=== PATIENT | male | born 1975 | race Caucasian/White ===

== ENCOUNTER 2021-12-25 00:59 | Emergency (ER) | payer OTHER ==
[~2021-12-25] VITALS: Ht 170.2 cm; Wt 106.1 kg
[2021-12-25 03:07] LABS: BASOPHILS ABSOLUTE AUTO 0.07 K/mm3 (0.00-0.23); BASOPHILS PERCENT AUTO 1 % (0-2); EOSINOPHILS ABSOLUTE AUTO 0.18 K/mm3 (0.00-0.68); EOSINOPHILS PERCENT AUTO 2 % (0-6); Hematocrit 47.8 % (37.0-53.0); Hemoglobin 17.2 g/dL (13.5-17.5); IMMATURE GRAN ABSOLUTE AUTO 0.03 K/mm3 (0.00-0.10); IMMATURE GRAN PERCENT AUTO 0 % (0-1); LYMPHOCYTES ABSOLUTE AUTO 2.18 K/mm3 (0.84-5.20); LYMPHOCYTES PERCENT AUTO 20 % (21-46); MONOCYTES ABSOLUTE AUTO 0.89 K/mm3 (0.16-1.47); MONOCYTES PERCENT AUTO 8 % (4-13); Mean Corpuscular HGB 31.7 pg (26.0-34.0); Mean Corpuscular Volume 88 fL (80-100); Mean Platelet Volume 12.6 fL (9.1-12.4); NEUTROPHILS ABSOLUTE AUTO 7.64 K/mm3 (1.96-9.15); NEUTROPHILS PERCENT AUTO 70 % (41-73); Platelet Count 260 K/mm3 (150-400); RDW Coefficient Variation 12.6 % (11.7-14.2); RDW Standard Deviation 40.9 fL (35.1-46.3); Red Blood Cell Count 5.43 M/mm3 (4.30-5.90); White Blood Cell Count 10.99 K/mm3 (4.00-11.30)
[2021-12-25 03:28] LABS: Alanine Aminotransfer (ALT/SGP 38 U/L (12-78); Albumin, Blood 4.1 g/dL (3.4-5.0); Albumin/Globulin Ratio 1.1 (0.8-1.8); Alk Phos 81 U/L (50-136); Anion Gap 10 mmol/L (6-16); Aspartate Aminotrans (AST/SGOT 18 U/L (12-37); Bilirubin, Total 0.4 mg/dL (0.1-1.0); Blood Urea Nitrogen 12 mg/dL (8-24); CO2, Blood 24 mmol/L (21-32); Calcium, Blood 9.7 mg/dL (8.5-10.1); Chloride, Blood 107 mmol/L (98-108); Creatinine, Blood 1.09 mg/dL (0.60-1.20); Globulin, Blood 3.6 g/dL (2.2-4.0); Glomerular Filtration Rate >60 (60-); Glucose, Blood 160 mg/dL (70-99); Potassium, Blood 3.7 mmol/L (3.5-5.5); Sodium, Blood 141 mmol/L (136-145); Total Protein, Blood 7.7 g/dL (6.4-8.2)
[2021-12-25 09:46] LABS: Source, Urine Clean Catch
[2021-12-25 09:56] LABS: Bilirubin, Urine Neg (Neg); Blood, Urine Neg (Neg); Glucose Qualitative, Urine Neg (Neg); Ketones, Urine Neg (Neg); Leukocyte Esterase, Urine Neg (Neg); Nitrite, Urine Neg (Neg); Protein, Urine Neg (Neg); Urobilinogen, Urine 1+ (Normal)
[2021-12-25 10:04] LABS: Appearance, Urine Clear (Clear); Color, Urine Yellow (P-Yellow)
[2021-12-25] MEDS ORDERED: HYDR1TAB94 PO (10:34)
[2021-12-25] MEDS ORDERED: ONDA4ODT MM (10:34)
== END 2021-12-25 10:54 | disposition home or self-care (01) ==
LOC: ER 00:59
PROVIDERS: Student in an Organized Health Care Education/Training Program
DX: K80.70 Calculus of gallbladder and bile duct without cholecystitis without obstruction (principal); F17.210 Nicotine dependence, cigarettes, uncomplicated; Z88.6 Allergy status to analgesic agent
CPT/HCPCS: 36415; 74176; 80053; 81003; 83690; 85025; 93005; 93010; 96374; 96375; 99284-25; J2270; J2405; J7030

== ENCOUNTER 2021-12-30 00:53 | Observation (INO) | payer OTHER ==
[~2021-12-30] VITALS: Ht 170.2 cm; Wt 104.1 kg
[~2021-12-30 00:53] MED LIST: HYDR1TAB94 PO; ONDA4ODT MM
[2021-12-30] MEDS ORDERED: Percocet 5-3251 EACH (01:14)
[2021-12-30 02:10] LABS: BASOPHILS PERCENT AUTO 1 % (0-2); EOSINOPHILS ABSOLUTE AUTO 0.41 K/mm3 (0.00-0.68); EOSINOPHILS PERCENT AUTO 2 % (0-6); Hematocrit 46.8 % (37.0-53.0); Hemoglobin 16.3 g/dL (13.5-17.5); IMMATURE GRAN ABSOLUTE AUTO 0.09 K/mm3 (0.00-0.10); IMMATURE GRAN PERCENT AUTO 1 % (0-1); LYMPHOCYTES ABSOLUTE AUTO 2.83 K/mm3 (0.84-5.20); LYMPHOCYTES PERCENT AUTO 17 % (21-46); MONOCYTES ABSOLUTE AUTO 2.12 K/mm3 (0.16-1.47); MONOCYTES PERCENT AUTO 12 % (4-13); Mean Corpuscular HGB 31.3 pg (26.0-34.0); Mean Corpuscular HGB Conc 34.8 g/dL (31.5-36.5); Mean Corpuscular Volume 90 fL (80-100); Mean Platelet Volume 11.8 fL (9.1-12.4); NEUTROPHILS ABSOLUTE AUTO 11.57 K/mm3 (1.96-9.15); NEUTROPHILS PERCENT AUTO 68 % (41-73); Platelet Count 271 K/mm3 (150-400); RDW Coefficient Variation 12.5 % (11.7-14.2); RDW Standard Deviation 41.9 fL (35.1-46.3); White Blood Cell Count 17.12 K/mm3 (4.00-11.30)
[2021-12-30 02:26] LABS: Alanine Aminotransfer (ALT/SGP 37 U/L (12-78); Albumin, Blood 3.6 g/dL (3.4-5.0); Albumin/Globulin Ratio 0.9 (0.8-1.8); Alk Phos 101 U/L (50-136); Anion Gap 5 mmol/L (6-16); Aspartate Aminotrans (AST/SGOT 16 U/L (12-37); Bilirubin, Total 0.7 mg/dL (0.1-1.0); Blood Urea Nitrogen 11 mg/dL (8-24); Bun/Creatinine Ratio 9.7 (12.0-20.0); CO2, Blood 27 mmol/L (21-32); Calcium, Blood 9.2 mg/dL (8.5-10.1); Chloride, Blood 107 mmol/L (98-108); Creatinine, Blood 1.13 mg/dL (0.60-1.20); Glomerular Filtration Rate >60 (60-); Glucose, Blood 117 mg/dL (70-99); Sodium, Blood 139 mmol/L (136-145); Total Protein, Blood 7.6 g/dL (6.4-8.2)
[2021-12-30 03:37] LABS: International Normalized Ratio 1.03; Prothrombin Time Results 10.8 Sec (9.7-11.5)
--- NOTE | 2021-12-30 05:34 | NUR ---
ASSUMPTION OF CARE: RECEIVED REPORT FROM PRIYA GUTIERREZ RN. PATIENT ARRIVED BY W/C AND TRANSFERRED SELF TO THE BED. VSS, PATIENT RATES PAIN 4/10 ON "WHOLE RIGHT SIDE." PATIENT RECEIVED DILAUDID ~0400; PER REPORT MORPHINE DID NOT HELP WITH PAIN. PATIENT IS NPO IN ANTICIPATION OF PROCEDURE LATER TODAY. ADMIT HX COMPLETE. D5 IS RUNNING PER EMAR; PATIENT PREFERS RIGHT WRIST IV IS USED FOR IV MEDICATIONS THOUGH THERE IS A SECOND IV IN RAC. PLEASANT AND COOPERATIVE WITH CARE WITH INTERESTING STORIES AND VAST ARRAY OF HOBBIES. PATIENT IS GOING THROUGH A "MESSY" DIVORCE AND IS PREOCCUPIED WITH THE LEGAL ASPECT OF THAT. COUSIN STU IS THE ONLY APPROVED PERSON TO KNOW HE IS HERE AND CODE WORD IS DOCUMENTED IN CHART.
[2021-12-30 08:46] LABS: Source, Urine Clean Catch
[2021-12-30 08:50] LABS: Appearance, Urine Clear (Clear); Bilirubin, Urine Neg (Neg); Blood, Urine 1+ (Neg); Color, Urine Yellow (P-Yellow); Glucose Qualitative, Urine Neg (Neg); Ketones, Urine 1+ (Neg); Leukocyte Esterase, Urine Neg (Neg); Nitrite, Urine Neg (Neg); Protein, Urine 1+ (Neg); Urobilinogen, Urine 2+ (Normal)
[2021-12-30 09:01] LABS: Bacteria Rare /hpf; Hyaline Casts 0-2 /lpf (0-2); Mucus Light (0-Heavy); Red Blood Cells, Urine 0-2 /hpf (0-2); Squamous Epithelial Cells Rare /hpf (Few); White Blood Cells, Urine 0-2 /hpf (0-5)
[2021-12-30 10:19] LABS: SARS-Cov-2 (COVID-19) PCR, MMC NEGATIVE (NEGATIVE)
--- NOTE | 2021-12-30 12:30 | NUR ---
PT TAKEN TO DAY SURGERY. WILL AWAIT RETURN
--- NOTE | 2021-12-30 16:53 | NUR ---
PT ARRIVED TO THE ROOM FROM PACU AT 1645. PT IS DROWSY BUT ORIENTED. PT REPORTS LOWER ABD PAIN. WILL CONTINUE TO MONITOR.
[2021-12-30] MEDS ORDERED: HYDR1TAB94 PO (17:10)
--- NOTE | 2021-12-30 18:55 | NUR ---
DISCHARGE PT PROVIDED WITH WRITTEN AND VERBAL DISCHARGE INSTRUCTIONS, HE REPORTED UNDERSTANDING. PT WAS ENCOURAGED TO STAY FOR POST-OP VS TO BE COMPLETED AT 1950; PT WAS EDUCATED THAT HIS BP WAS ELEVATED AND ENCOURAGED TO STAY FOR MONITORING. PT REPORTED UNDERSTANDING BUT DECLINED TO STAY ANY LONGER FOR MONITORING AND SIGNED AMA PAPERWORK AND IT WAS PLACED ON THE CHART. PT ABLE TO VOID, TOLERATE PO, PAIN MANAGED AND ABLE TO AMBULATE PRIOR TO DISCHARGE. DISCHARGE INSTRUCTIONS PROVIDED. SCRIPT FOR PAIN MEDICATION PROVIDED AFTER PT ARRIVED TO THE ROOM AT 1645; HIS FAMILY WAS EDUCATED TO FILL THE MEDICATION BEFORE THE PHARMACY CLOSES. ABD BINDER PROVIDED AND PT ASSISTED OUT IN WHEELCHAIR.
== END 2021-12-30 18:51 | disposition home or self-care (01) ==
LOC: ER 00:53 → PCU 04:23 → SURS 04:45 → PCU 16:11 → SURS 16:45
PROVIDERS: Student in an Organized Health Care Education/Training Program; Surgery; ADMIT Surgery
DX: K80.00 Calculus of gallbladder with acute cholecystitis without obstruction (principal); K82.A1 Gangrene of gallbladder in cholecystitis; F17.210 Nicotine dependence, cigarettes, uncomplicated; Z20.822 Contact with and (suspected) exposure to COVID-19
CPT/HCPCS: 36415; 74300; 76705; 80053; 81001; 83690; 85025; 85610; 86850; 86900; 86901; 88304; 96365; 96375; 96376; 99285-25; C1729; G0378; J0690; J1100; J1170; J2250; J2270; J2405; J2543; J2704; J3010; J7030; J7042; J7120; U0004